=== PATIENT | female | born 1945 | race Caucasian/White ===

== ENCOUNTER 2024-01-10 11:00 | Outpatient (RCR) | payer OTHER, SELFPAY ==
--- NOTE | 2023-10-25 11:57 | PTOPEVAL1 ---
Assessment and note entered by Verito Ivey, PT Evaluation Information Assessment Status Evaluation Diagnosis Hemiplegia unspec affecting R dominant side, CVA, oth. S&S involving musculoskeletal system Therapy conditions oth abnormalities of gait and mobility weakness Onset Aug 23, 2023 Subjective Information Was in [facility] in [facility], acute hospital x 3 days then Rehab with [facility] 2 weeks Was getting home health for a time but reports they were only there for 20 minutes at a time. Reports her writing is difficult, her signature she reports worsened as she continues writing. Has greatest difficulty with arm, but mostly the fingers with use. Pt goals: using hand to be able to quilt and stitch, being able to cook. would like to graduate to a cane at least with walking Reported Pain Level Pain Score 0: Self Report Assessment PT Clinical Summary Pt presents s/p CVA 2 months ago affecting RUE and RLE which is her dominant side. Her PLOF was completely independent in all ADLs and mobility, she lives with her in a house with a basement that she currently does not go down to. She demo's global weakness RUE and RLE compared to her LUE and LLE, abnormal gait including toe-drag and use of AD, decreased balance with 5x sit to stand test, decreased coordination/body awareness right side, and impingement type issues of right shoulder. Pt will greatly benefit from physical therapy to address deficits and improve overall function to return to PLOF. Plan of Care Interventions Electrical Stimulation,Gait Training,Manual Therapy,Neuro Re-education,Therapeutic Activities, Therapeutic Exercise,Self-Care/Home Management PT Services Indicated Yes Treatment Frequency and 1-3 x weekly x 20 visits Duration These treatments will address the objective and functional deficits as defined above. The patient will be advanced safely and appropriately in order for the patient to progress towards his/her prior level of function. Additional exercises will be introduced and as well as a comprehensive home exercise program upon discharge, if needed, ?to ensure carryover of functional gains achieved in the clinic. This marilyn
--- NOTE | 2023-10-25 11:58 | OPREHPOC ---
Outpatient Therapy Plan of Care This is a Multidisciplinary Plan of Care that may contain components documented by all disciplines (PT, OT, and ST.) PT Goal 1 Goal Pt will be independent in HEP Pt will verbalize understanding of diagnosis and prognosis Target Visit 10 PT Goal 1 Goal Pt will demo equal strength RLE and LLE in all tested planes Target Visit 20 PT Goal 2 Goal Pt will demo strength of 4+/5 in all tested planes Target Visit 20 PT Problem 3 PT Problem #3 Impaired Range of Motion PT Goal 1 Goal right ankle passive dorsiflexion will equal left ankle Target Visit 10 PT Problem 4 PT Problem #4 Impaired Gait PT Goal 1 Goal Pt will demo equal step length, no toe drag throughout 150 ft ambulation in gym with LRAD Target Visit 20 PT Problem 5 PT Problem #5 Impaired Balance PT Goal 1 Goal Pt will demo ability to perform 5x sit>straightening press operator < 20 seconds with or without UEs Target Visit 10 PT Goal 2 Goal Pt will demo ability to perform 5x sit>straightening press operator 15 seconds without UEs Target Visit 20
--- NOTE | 2023-10-25 12:01 | OPREHPOC ---
Outpatient Therapy Plan of Care This is a Multidisciplinary Plan of Care that may contain components documented by all disciplines (PT, OT, and ST.) PT Goal 1 Goal Pt will be independent in HEP Pt will verbalize understanding of diagnosis and prognosis Target Visit 10 PT Goal 1 Goal Pt will demo equal strength RLE and LLE in all tested planes Target Visit 20 PT Goal 2 Goal Pt will demo strength of 4+/5 in all tested planes Target Visit 20 PT Problem 3 PT Problem #3 Impaired Range of Motion PT Goal 1 Goal right ankle passive dorsiflexion will equal left ankle Target Visit 10 PT Problem 4 PT Problem #4 Impaired Gait PT Goal 1 Goal Pt will demo equal step length, no toe drag throughout 150 ft ambulation in gym with LRAD Target Visit 20 PT Problem 5 PT Problem #5 Impaired Balance PT Goal 1 Goal Pt will demo ability to perform 5x sit>potline monitor < 20 seconds with or without UEs Target Visit 10 PT Goal 2 Goal Pt will demo ability to perform 5x sit>potline monitor 15 seconds without UEs Target Visit 20
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
--- NOTE | 2023-11-07 10:16 | OTOPEVAL1 ---
Assessment and note entered by Aaron Breen, TAVON/Mary, CHT Evaluation Information 11/07/23 Diagnosis CVA affecting right dominant side Onset 08/23/23 Subjective Information Patient lives at home with her . He helps her with shower transfers, otherwise she bathes and dresses herself. She reports difficulties with right hand use for feeding, writing, and reaching . States that when she left inpatient rehab she could raise her arm all the way, but since having a fall back onto the toilet where she hit the right side/arm, she hasn't been able to raise it and it's been more painful. Assessment OT Clinical Summary Patient referred to OT with a decline in R UE use following a CVA. She presents with limited shoulder ROM, gross weakness, and impaired functional fine motor coordination. Skilled OT indicated to maximize functional ROM, strength, and coordination to facilitate return to right hand use for grooming, eating, and and household tasks. Plan of Care Interventions Therapeutic Exercise,Neuro Re-education, Therapeutic Activities,Hot Pack/Cold Pack OT Services Indicated Yes Treatment Frequency and 2x/week for 8 visits Duration These treatments will address the objective and functional deficits as defined above. The patient will be advanced safely and appropriately in order for the patient to progress towards his/her prior level of function. Additional exercises will be introduced and as well as a comprehensive home exercise program upon discharge, if needed, ?to ensure carryover of functional gains achieved in the clinic. This treatment plan has been reviewed and agreement upon by the patient.
--- NOTE | 2023-11-07 10:17 | OPREHPOC ---
Outpatient Therapy Plan of Care This is a Multidisciplinary Plan of Care that may contain components documented by all disciplines (PT, OT, and ST.) PT Goal 1 Goal Pt will be independent in HEP Pt will verbalize understanding of diagnosis and prognosis Target Visit 10 PT Goal 1 Goal Pt will demo equal strength RLE and LLE in all tested planes Target Visit 20 PT Goal 2 Goal Pt will demo strength of 4+/5 in all tested planes Target Visit 20 PT Problem 3 PT Problem #3 Impaired Range of Motion PT Goal 1 Goal right ankle passive dorsiflexion will equal left ankle Target Visit 10 PT Problem 4 PT Problem #4 Impaired Gait PT Goal 1 Goal Pt will demo equal step length, no toe drag throughout 150 ft ambulation in gym with LRAD Target Visit 20 PT Problem 5 PT Problem #5 Impaired Balance PT Goal 1 Goal Pt will demo ability to perform 5x sit>standpipe tender < 20 seconds with or without UEs Target Visit 10 PT Goal 2 Goal Pt will demo ability to perform 5x sit>standpipe tender 15 seconds without UEs Target Visit 20 OT Problem 1 OT Problem #1 Knowledge Deficit OT Goal 1 Goal 1. Patient to be independent with instructed materials. Target Visit 8 OT Problem 2 OT Problem #2 Impaired Range of Motion OT Goal 1 Goal 1. Patient to increase right shoulder ROM to improve functional reaching during ADLs: - increase right shoulder flexion to 120 deg. - increase right shoulder abduction to 100 deg. - increase right shoulder int. rot. to be able to touch her low back Target Visit 8 OT Problem 3 OT Problem #3 Impaired Strength OT Goal 1 Goal 1. Patient to increase right teacher of the sight impaired strength from 14 lbs. to 30 lbs. 2. Patient to be able to complete right elbow, forearm,
--- NOTE | 2023-11-14 08:11 | PCPTNOTE ---
Patient called & cancelled scheduled appointment this date due to feeling unwell.
--- NOTE | 2023-11-24 15:24 | PCPTNOTE ---
Department called & cancelled appointment 11/23/23 due to staffing shortage. Pt's POC will continue with next scheduled appointment.
--- NOTE | 2023-12-01 11:35 | OTOPPROG ---
Assessment and note entered by Aaron Breen, TAVON/Mary, CHT Progress Update 12/01/23 Diagnosis CVA affecting right dominant side Onset 08/23/23 Subjective Information Patient reports progress with the right UE since beginning therapy a month ago. She reports she is back to feeding herself with the right hand again. She has also noticed improved abilities to right and reach items with the right arm. She states she cannot reach up very high however. She continues to report shoulder pain with certain movements and limited mobility of the shoulder. She is also helping in the kitchen with food prep, chopping veggies, etc. Assessment OT Clinical Summary Patient referred to OT with a decline in R UE use following a CVA. OT reassessment completed today. Patient is demonstrating improved mobility of the shoulder, improved gross strength of the right UE, and improved functional fine motor coordination. Continued skilled OT indicated to maximize functional ROM, strength, and coordination to facilitate return to right hand use for ADLs and reduced shoulder pain during ADLs. Plan of Care Interventions Therapeutic Exercise,Neuro Re-education, Therapeutic Activities,Hot Pack/Cold Pack OT Services Indicated Yes Treatment Frequency and 2x/week for 8 visits Duration These treatments will address the objective and functional deficits as defined above. The patient will be advanced safely and appropriately in order for the patient to progress towards his/her prior level of function. Additional exercises will be introduced and as well as a comprehensive home exercise program upon discharge, if needed, ?to ensure carryover of functional gains achieved in the clinic. This treatment plan has been reviewed and agreement upon by the patient.
--- NOTE | 2023-12-01 11:35 | OPREHPOC ---
Outpatient Therapy Plan of Care This is a Multidisciplinary Plan of Care that may contain components documented by all disciplines (PT, OT, and ST.) PT Goal 1 Goal Pt will be independent in HEP Pt will verbalize understanding of diagnosis and prognosis Target Visit 10 PT Goal 1 Goal Pt will demo equal strength RLE and LLE in all tested planes Target Visit 20 PT Goal 2 Goal Pt will demo strength of 4+/5 in all tested planes Target Visit 20 PT Problem 3 PT Problem #3 Impaired Range of Motion PT Goal 1 Goal right ankle passive dorsiflexion will equal left ankle Target Visit 10 PT Problem 4 PT Problem #4 Impaired Gait PT Goal 1 Goal Pt will demo equal step length, no toe drag throughout 150 ft ambulation in gym with LRAD Target Visit 20 PT Problem 5 PT Problem #5 Impaired Balance PT Goal 1 Goal Pt will demo ability to perform 5x sit>linux server administrator < 20 seconds with or without UEs Target Visit 10 PT Goal 2 Goal Pt will demo ability to perform 5x sit>linux server administrator 15 seconds without UEs Target Visit 20 OT Problem 1 OT Problem #1 Knowledge Deficit OT Goal 1 Goal 1. Patient to be independent with instructed materials. ---OT POC UPDATE 12/01/23--- 1. Met, continue as HEP is progressed Target Visit 16 OT Problem 2 OT Problem #2 Impaired Range of Motion OT Goal 1 Goal 1. Patient to increase right shoulder ROM to improve functional reaching during ADLs: - increase right shoulder flexion to 120 deg. - increase right shoulder abduction to 100 deg. - increase right shoulder int. rot. to be able to touch her low back ---OT POC UPDATE 12/01/23--- 1. Shoulder ROM is progressing, she continues to be limited and painful Target Visit 16
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
--- NOTE | 2024-01-03 15:19 | PCOTNOTE ---
The patient treatment was not able to be completed on Monday 01/01 due to Therapist being out of the building. Will plan to continue treatment per plan of care. Patient is scheduled for 01/03.
--- NOTE | 2024-01-04 13:26 | PCPTNOTE ---
Patient called & cancelled scheduled appointment this date due to illness.
--- NOTE | 2024-01-10 10:52 | OTOPDC ---
Assessment and note entered by TAVON Damon/Mary, CHT OT Discharge Summary 01/10/24 Diagnosis CVA affecting right dominant side Onset 08/23/23 Subjective Information Patient reports progress with the right UE. She reports reduced shoulder pain, which has allowed her to use her dominant UE for more ADL tasks. She is getting back into some cooking tasks, washing dishes, and doing some laundry. She is able to use her right arm to hang clothes again. She reports improved ability with writing, noting it's more legible. She also started doing her cross- stitching again. Patient demonstrates improved functional shoulder ROM and is no longer having pain with shoulder motion and shoulder strengthening. She has progressed to being able to do her strengthening HEP from home health that she was doing prior to hurting her shoulder. Elbow and wrist strength has progressed to normal limits. Right dioramist strength continues to be weak at 15 lbs. She admits to not doing her putty HEP as often as she should. Fine motor coordination, as measured by the 9-hole peg test, improved from 70 seconds to 39 seconds. Reported Pain Level Pain Score 0: Self Report Assessment OT Clinical Summary Patient referred to OT with a decline in R UE use following a CVA. OT reassessment completed today. Patient has made excellent progress this month. She no longer is experiencing shoulder pain, which is allowing for improved functional use during ADLs. Strength of the shoulder is emerging, and she is independent with strengthening HEP. Distally, dioramist strength continues to be weak, however she has had questionable compliance with dioramist strengthening HEP. She has progressed to being able to complete her strengthening HEP from home health that she was doing prior to injuring the shoulder. Plan to D/C today with patient independent with all materails. Plan of Care OT Services Indicated No
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
== END 2024-01-11 10:41 | disposition home or self-care (01) ==
LOC: ANHHIPT 11:00
PROVIDERS: PCP Nurse Practitioner Family; Visit Provider Nurse Practitioner Family
DX: G81.91 Hemiplegia, unspecified affecting right dominant side (principal); I63.9 Cerebral infarction, unspecified; R29.898 Other symptoms and signs involving the musculoskeletal system
CPT/HCPCS: 97014; 97110; 97112; 97116; 97163; 97165; 97530; 97750; G0283